=== PATIENT | male | born 1995 | race Hispanic/Latino ===

== ENCOUNTER 2024-09-27 16:44 | Observation (INO) | payer SELFPAY ==
--- NOTE | ~2024-09-27 | CT_ITS ---
CT cervical spine wo con Ordering provider: Trini Nixon PA-C History: . fall . Comparison: None. Technique: CT of the cervical spine was performed without contrast. Sagittal and coronal reformatted images were also obtained and reviewed. Automated exposure control and iterative reconstruction micaela hnique were employed. The dose-length product was 372.84 mGy-cm. FINDINGS: VERTEBRAE: No subluxation or acute fracture. The occipital condyles are intact. Sclerotic area in th e spinous process of C5. DISC SPACES: Normal. PARASPINOUS SOFT TISSUES: Normal. IMPRESSION: No acute osseous abnormality cervical spine. Sclerotic area in the spinous process of C5. Follow-up advised. Reviewed, dictated and finalized at location A.
--- NOTE | ~2024-09-27 | XR_ITS ---
XR hand LT min 3V Ordering provider: Louise Schwarz APRN History: . L hand pain following fall . Comparison: None. FINDINGS: BONES: No acute fracture or dislocation. JOINT SPACES: Well maintained. SOFT TISSUES: Unremarkable. IMPRESSION: No acute osseous abnormality left hand. Reviewed, dictated and finalized at location A.
--- NOTE | ~2024-09-27 | MR_ITS ---
EXAMINATION: MR lumbar spine wo con DATE: 09/29/2024 09:02 INDICATION: L1 burst fracture. Assess for ligamentous injury. TECHNIQUE: Magnetic resonance imaging (MRI) of the lumbar spine was performed without intravenous con trast. Sequences included sagittal T2-weighted FSE, sagittal T2-weighted FS FSE, sagittal T1-weighted FSE, and axial T2-weighted FSE. COMPARISON: None FINDINGS: Minimal kyphosis centered at an acute L1 burst fracture with 40% anterior vertebral body height loss and 2-3 mm retropulsion. There is mild associated marrow edema in the L1 vertebral body extending int o the bilateral pedicles which are without evident fracture. There is also minimal paravertebral carmen a. No evident tear of the anterior spinal, posterior spinal, intraspinal or supraspinal ligaments. Li gamentum flavum also appears intact. Remaining vertebral body heights are normal with otherwise daron l marrow signal throughout. Disc heights are normal. There is disc desiccation as well as annular fis sure without disc height loss at L5-S1. The conus medullaris terminates at L1. There is normal signal in the caudal spinal cord. The following disc levels are specifically discussed: T12-L1: The disc does not extend beyond the endplate margin. There is minimal bilateral facet joint o steoarthritis. There is no neural foraminal stenosis. There is no central canal stenosis at the level of the disc space. There is mild central canal stenosis more caudally due to the mild L1 retropulsio n. L1-L2: The disc does not extend beyond the endplate margin. There is mild bilateral facet joint osteo arthritis. There is no neural foraminal stenosis. There is no central canal stenosis. L2-L3: The disc does not extend beyond the endplate margin. There is minimal bilateral facet joint os teoarthritis. There is no neural foraminal stenosis. There is no central canal stenosis. L3-L4: The disc does not extend beyond the endplate margin. There is mild bilateral facet joint osteo arthritis. There is no neural foraminal stenosis. There is no central canal stenosis. L4-L5: Disc is mildly bulging. There is mild bilateral facet joint osteoarthritis. There is mild bila teral neural foraminal stenosis. There is negligible central canal stenosis. L5-S1: Disc is mildly bulging with annular fissure. There is mild bilateral facet joint osteoarthriti s. There is mild bilateral neural foraminal stenosis. There is no central canal stenosis. IMPRESSION: 1. Relatively acute appearing L1 burst fracture with mild retropulsion resulting in mild central darleen l stenosis but without evident associated ligamentous injury. 2. Minimal lumbar spondylosis with annular fissure at L5-S1 and multilevel mild facet osteoarthritis Reviewed, dictated and finalized at location A. IMPRESSION: 1. Relatively acute appearing L1 burst fracture with mild retropulsion resultin g in mild central canal stenosis but without evident associated ligamentous inj ury. 2. Minimal lumbar spondylosis with annular fissure at L5-S1 and multilevel mild facet osteoarthritis
--- NOTE | ~2024-09-27 | CT_ITS ---
CT thoracic lumbar wo con Ordering provider: Trini Nixon History: . low back pain, fall . Comparison: None. Technique: CT thoracic spine without contrast. Automated exposure control and iterative reconstructi on technique were employed. The dose-length product was 1256.18 mGy-cm. FINDINGS: VERTEBRAE: Normal height and alignment. No subluxation or visible acute fracture. DISC SPACES: Well maintained. No significant stenosis as visualized. PARASPINOUS SOFT TISSUES: Normal. IMPRESSION: No acute osseous abnormality of the thoracic spine. CT thoracic lumbar wo con Ordering provider: Trini Coreas Hussain History: 29 years Male with . low back pain, fall . Comparison: None. Technique: CT lumbar spine without contrast. Automated exposure control and iterative reconstruction technique were employed. The dose-length product was 1256.18 mGy-cm. FINDINGS: VERTEBRAE: Compression fracture of L1 with minimal retropulsion. DISC SPACES: Well maintained. T12-L1: No stenosis. L1-L2: Mild spinal canal stenosis secondary to retropulsed bone fragment in the upper L1 vertebra. L2-L3: No stenosis. L3-L4: No stenosis. Mild diffuse disc bulge. L4-L5: No stenosis. L5-S1: No stenosis. Central disc protrusion with no mild intervertebral foraminal narrowing. No defi nite root compression. PARASPINOUS SOFT TISSUES: Normal. IMPRESSION: Compression fracture of L1 with minimal retropulsed fragment and spinal canal stenosis. Disc protrusion at the level of L5-S1. MRI is is better for evaluation. Reviewed, dictated and finalized at location A. IMPRESSION: No acute osseous abnormality of the thoracic spine. === CT thoracic lumbar wo con Ordering provider: Trini LAndrea Nixon History: 29 years Male with . low back pain, fall . Comparison: None. Technique: CT lumbar spine without contrast. Automated exposure control and it erative reconstruction technique were employed. The dose-length product was 125 6.18 mGy-cm. FINDINGS: VERTEBRAE: Compression fracture of L1 with minimal retropulsion. DISC SPACES: Well maintained. T12-L1: No stenosis. L1-L2: Mild spinal canal stenosis secondary to retropulsed bone fragment in th e upper L1 vertebra. L2-L3: No stenosis. L3-L4: No stenosis. Mild diffuse disc bulge. L4-L5: No stenosis. L5-S1: No stenosis. Central disc protrusion with no mild intervertebral forami nal narrowing. No definite root compression. PARASPINOUS SOFT TISSUES: Normal. IMPRESSION: Compression fracture of L1 with minimal retropulsed fragment and spinal canal s tenosis. Disc protrusion at the level of L5-S1. MRI is is better for evaluation.
--- NOTE | ~2024-09-27 | CT_ITS ---
CT brain wo con Ordering provider: Trini Nixon PA-C History: 29 years Male with . fall . Comparison: None. Technique: CT of the head without contrast. Radiation reduction technique utilized.The dose-length pr oduct was 681 mGy-cm. FINDINGS: BRAIN PARENCHYMA AND CSF SPACES: No midline shift, mass effect or hemorrhage. The brain parenchyma a nd CSF spaces are otherwise normal. VISUALIZED PARANASAL SINUSES: Well aerated. MASTOIDS: Well aerated. Bilateral external auditory canal cerumen is seen. BONES: The bones appear intact. SOFT TISSUES: Visualized nasopharynx is normal. Superficial soft tissues are normal. IMPRESSION: No acute intracranial findings. Reviewed, dictated and finalized at location A.
[2024-09-27 16:47] VITALS: BP 140/90; PULSE 91; RESP 16; TEMP 36.4; O2SAT 98
--- NOTE | 2024-09-27 16:52 | ED.BACK ---
HPI - Back Pain/Injury General Chief Complaint: Back Pain/Injury <Trini Nixon PA-C - Last Filed: 09/28/24 09:29> Stated Complaint: Fell from ladder 6-8'-lower back pain <Trini Nixon PA-C - Last Filed: 09/28/24 09:29> Time Seen by Provider: 09/27/24 16:52 <Trini Nixon PA-C - Last Filed: 09/28/24 09:29> Focused HPI: This is a 29-year-old male that presents to the emergency department after a fall today with low back pain. Reports he fell about 6-8 feet from a ladder. He does not believe he hit his head. Landed on his back. GENERAL: Uncomfortable, well-nourished, and in no acute distress. HEAD: Normocephalic, atraumatic. CHEST: Clear to auscultation. ?No respiratory distress. HEART: Regular rate and rhythm.? NEURO: ?Alert and oriented x3. Patient screened in triage and initial orders placed.? ?Additional care and disposition to be based upon?diagnostic testing and treatment. <Trini Nixon PA-C - Last Filed: 09/28/24 09:29> Related Data Home Medications: Home Medications ?Medication ?Instructions ?Recorded ?Confirmed ?Last Taken ?Type No Home Medications 09/27/24 09/27/24 Unknown History <Trini Nixon PA-C - Last Filed: 09/28/24 09:29> Allergies/Adverse Reactions: Allergies Allergy/AdvReac Type Severity Reaction Status Date / Time No Known Allergies Allergy Verified 09/27/24 16:46 <Trini Nixon PA-C - Last Filed: 09/28/24 09:29> Review of Systems Review of Systems: All systems reviewed & are unremarkable except as noted in HPI and below <Louise Schwarz APRN - Last Filed: 09/27/24 19:41> PMFSH Social History Social History: Social History Smoking status: Never smoker Second hand tobacco smoke exposure: No Alcohol intake: current Drinks per week: 14 Substance use: never Substance use type: does not use Do You Feel Safe in your Home?: Yes Lack of Transportation: No Lack of Food: Never True Current Housing: I Have Housing Concerned About Future Housing: No Difficulty Paying Gas/Electric Bills: No Difficulty Paying for Meds: No Currently Unemployed: No Education: Grade School Difficulty w/ Childcare or Family Care: No Spiritual care concerns: No <Trini Nixon PA-C - Last Filed: 09/28/24 09:29> Exam Narrative: GENERAL: Ill appearing, well-nourished, non-toxic, in mild distress. HEAD: Normocephalic, atraumatic. NECK: Supple. No adenopathy, no masses. nontender with palpation. RESPIRATORY: Airway patent, respirations nonlabored. Clear to auscultation bilaterally, no rales, rhonchi, wheezing. CARDIOVASCULAR: Regular rate and rhythm without murmurs, rubs, or gallops. Peripheral pulses 2+ and equal bilaterally. ABDOMINAL: Soft, nontender, nondistended, no hepatosplenomegaly. Normoactive BS. MUSCULOSKELETAL: Moves all extremities. Strength/ROM intact without gross deformities. Lower back tenderness with palpation along spine and at rest. Negative snuffbox tenderness L hand, full ROM. SKIN: Warm, dry, normal color. No rashes. NEURO: A&O X3. Speech clear. Cranial nerves II-XII intact. No ataxic movements. <Louise Schwarz APRN - Last Filed: 09/27/24 19:41> Course Vital Signs Vital signs: Vital Signs Temperature 97.6 F 09/27/24 16:47 Pulse Rate 91 09/27/24 16:47 Respiratory Rate 16 09/27/24 16:47 Blood Pressure 140/90 09/27/24 16:47 Pulse Oximetry 98 09/27/24 16:47 Temperature 97.7 F 09/28/24 05:28 Pulse Rate 73 09/28/24 05:28 Respiratory Rate 16 09/28/24 05:28 Blood Pressure 107/48 L 09/28/24 05:28 Pulse Oximetry 100 09/28/24 05:28 Oxygen Delivery Room Air 09/27/24 22:42 <Trini Nixon PA-C - Last Filed: 09/28/24 09:29> Vital Signs Temperature 97.6 F 09/27/24 16:47 Pulse Rate 91 09/27/24 16:47 Respiratory Rate 16 09/27/24 16:47 Blood Pressure 140/90 09/27/24 16:47 Pulse Oximetry 98 09/27/24 16:47 Temperature 97.7 F 09/28/24 05:28 Pulse Rate 73 09/28/24 05:28 Respiratory Rate 16 09/28/24 05:28 Blood Pressure 107/48 L 09/28/24 05:28 Pulse Oximetry 100 09/28/24 05:28 Oxygen Delivery Room Air 09/27/24 22:42 <Louise Schwarz, AN/SYQ 13 NAV/C2 OPERATOR - Last Filed: 09/27/24 19:41> MDM - Back Pain/Injury MDM Narrative Medical decision making narrative: This is a 29-year-old male that presents to the emergency department after a fall today with low back pain. Reports he fell about 6-8 feet from a ladder. He does not believe he hit his head. Landed on his back. Labs Ordered: CBC, CMP, PTT, INR Imaging Ordered: CT head, CT cervical/spine, CT thoracic/lumbar, L hand x-ray Medications Ordered: 1 L normal saline IV bolus, Dilaudid 0.5 mg IV Results: Pt's CT brain indicates No acute intracranial findings. Pt's CT cervical/spine indicates No acute osseous abnormality cervical spine. Sclerotic area in the spinous process of C5. Follow-up advised. PT's thoracic/lumbar spine Compression fracture of L1 with minimal retropulsed fragment and spinal canal stenosis. Disc protrusion at the level of L5-S1. MRI is is better for evaluation. Diagnosis: L1 compression fracture Consults: 1829-spoke with Neurosurgery, Dr. Downing, who requests clarification of patient's CT scans. 1844-After further clarification, neurosurgery, Dr. Downing, recommends patient be admitted for pain control and bracing. 1914- Spoke with Dr. Jaramillo who was in agreement with plan for admission. Pt will be continued on IV pain medication and IV fluids. Patient Education/Shared MDM: Results of lab work and imaging shared with patient. He endorses improvement of symptoms following pain medication administration. He verbalizes understanding of plan for admission and is in agreement with plan. 1939- Pt continues to endorse back pain. Will give pt Toradol 15mg IV. <Louise Schwarz APRN - Last Filed: 09/27/24 19:41> Differential Diagnosis Differential diagnosis: Likely lumbar radiculopathy, strain of lumbar region and other (Compression fraction, lumbar fracture) <Louise Schwarz APRN - Last Filed: 09/27/24 19:41> Lab Data Attestation: I reviewed the patient's lab results. <Louise Schwarz APRN - Last Filed: 09/27/24 19:41> Result diagrams: 09/28/24 06:38 09/28/24 06:38 <Trini Nixon PA-C - Last Filed: 09/28/24 09:29> Labs: Lab Results 09/27/24 Range/Units 17:14 WBC 21.7 H (4.5-10.0) K/mm3 RBC 4.83 (4.6-6.20) M/mm3 Hgb 14.6 (14.0-18.0) g/dL Hct 43.1 (42.0-52.0) % MCV 89.2 (80-100) fl MCH 30.2 (26-34) pg MCHC 33.9 (32-36) g/dl RDW 12.7 (11.5-14.5) % Plt Count 316 (150-375) k/mm3 MPV 10.4 (7.4-10.4) fl Immature Gran % (Auto) Not Reportable Neut % (Auto) Not Reportable Lymph % (Auto) Not Reportable [place] % (Auto) Not Reportable Eos % (Auto) Not Reportable Baso % (Auto) Not Reportable Lymph # (Auto) Not Reportable [place] # (Auto) Not Reportable Eos # (Auto) Not Reportable Baso # (Auto) Not Reportable Abs Immat Gran (auto) Not Reportable Absolute Neuts (auto) Not Reportable Absolute Nucleated RBC Not Reportable Total Counted 100 Neutrophils % (Manual) 78 H (46-73) % Band Neutrophils % 2 (0-6) % Lymphocytes % (Manual) 12.0 L (18-44) % Monocytes % (Manual) 8 (3-9) % Nucleated RBC % Not Reportable Abs Neuts (Manual) 17.36 H (1.3-6.7) K/mm3 Abs Lymphs (Manual) 2.60 (1.1-4.5) K/mm3 Abs Monocytes (Manual) 1.73 H (0.1-0.90) K/mm3 Platelet Estimate Adequate (Adequate) Schistocytes None seen PT 13.8 (11.1-14.7) Seconds INR 1.0 APTT 22.4 (22.3-36.8) Seconds Sodium 139 (137-145) mmol/L Potassium 4.0 (3.4-5.0) mmol/L Chloride 105 (98-107) mmol/L Carbon Dioxide 23 (22-30) mmol/L Anion Gap 11 (4-12) mmol/L BUN 15 (9-20) mg/dL Creatinine 0.92 (0.7-1.3) mg/dL Estim Creat Clear Calc 96 ml/min Estimated GFR > 60 (59 - ) Glucose 145 H (65-110) mg/dL Calcium 9.6 (8.4-10.2) mg/dL Total Bilirubin 0.9 (0.2-1.3) mg/dL AST 51 (17-59) U/L ALT 36 (6-50) U/L Alkaline Phosphatase 83 (38-126) U/L Total Protein 9.0 H (6.3-8.2) g/dL Albumin 5.2 H (3.5-5.1) g/dL <Trini Nixon PA-C - Last Filed: 09/28/24 09:29> Lab Results 09/27/24 Range/Units 17:14 WBC 21.7 H (4.5-10.0) K/mm3 RBC 4.83 (4.6-6.20) M/mm3 Hgb 14.6 (14.0-18.0) g/dL Hct 43.1 (42.0-52.0) % MCV 89.2 (80-100) fl MCH 30.2 (26-34) pg MCHC 33.9 (32-36) g/dl RDW 12.7 (11.5-14.5) % Plt Count 316 (150-375) k/mm3 MPV 10.4 (7.4-10.4) fl Immature Gran % (Auto) Not Reportable Neut % (Auto) Not Reportable Lymph % (Auto) Not Reportable [place] % (Auto) Not Reportable Eos % (Auto) Not Reportable Baso % (Auto) Not Reportable Lymph # (Auto) Not Reportable [place] # (Auto) Not Reportable Eos # (Auto) Not Reportable Baso # (Auto) Not Reportable Abs Immat Gran (auto) Not Reportable Absolute Neuts (auto) Not Reportable Absolute Nucleated RBC Not Reportable Total Counted 100 Neutrophils % (Manual) 78 H (46-73) % Band Neutrophils % 2 (0-6) % Lymphocytes % (Manual) 12.0 L (18-44) % Monocytes % (Manual) 8 (3-9) % Nucleated RBC % Not Reportable Abs Neuts (Manual) 17.36 H (1.3-6.7) K/mm3 Abs Lymphs (Manual) 2.60 (1.1-4.5) K/mm3 Abs Monocytes (Manual) 1.73 H (0.1-0.90) K/mm3 Platelet Estimate Adequate (Adequate) Schistocytes None seen PT 13.8 (11.1-14.7) Seconds INR 1.0 APTT 22.4 (22.3-36.8) Seconds Sodium 139 (137-145) mmol/L Potassium 4.0 (3.4-5.0) mmol/L Chloride 105 (98-107) mmol/L Carbon Dioxide 23 (22-30) mmol/L Anion Gap 11 (4-12) mmol/L BUN 15 (9-20) mg/dL Creatinine 0.92 (0.7-1.3) mg/dL Estim Creat Clear Calc 96 ml/min Estimated GFR > 60 (59 - ) Glucose 145 H (65-110) mg/dL Calcium 9.6 (8.4-10.2) mg/dL Total Bilirubin 0.9 (0.2-1.3) mg/dL AST 51 (17-59) U/L ALT 36 (6-50) U/L Alkaline Phosphatase 83 (38-126) U/L Total Protein 9.0 H (6.3-8.2) g/dL Albumin 5.2 H (3.5-5.1) g/dL <Louise Schwarz, AN/SYQ 13 NAV/C2 OPERATOR - Last Filed: 09/27/24 19:41> Imaging Data Attestation: I personally reviewed and interpreted this imaging study as follows: <Louise Schwarz, AN/SYQ 13 NAV/C2 OPERATOR - Last Filed: 09/27/24 19:41> Radiologist's impression: Impressions Head CT 09/27/24 17:29 IMPRESSION: No acute intracranial findings. Cervical Spine CT 09/27/24 17:34 IMPRESSION: No acute osseous abnormality cervical spine. Sclerotic area in the spinous process of C5. Follow-up advised. Thoracic/Lumbar Spine CT 09/27/24 17:40 IMPRESSION: No acute osseous abnormality of the thoracic spine. CT thoracic lumbar wo con Ordering provider: Trini Nixon History: 29 years Male with . low back pain, fall . Comparison: None. Technique: CT lumbar spine without contrast. Automated exposure control and iterative reconstruction technique were employed. The dose-length product was 1256.18 mGy-cm. FINDINGS: VERTEBRAE: Compression fracture of L1 with minimal retropulsion. DISC SPACES: Well maintained. T12-L1: No stenosis. L1-L2: Mild spinal canal stenosis secondary to retropulsed bone fragment in the upper L1 vertebra. L2-L3: No stenosis. L3-L4: No stenosis. Mild diffuse disc bulge. L4-L5: No stenosis. L5-S1: No stenosis. Central disc protrusion with no mild intervertebral foraminal narrowing. No definite root compression. PARASPINOUS SOFT TISSUES: Normal. IMPRESSION: Compression fracture of L1 with minimal retropulsed fragment and spinal canal stenosis. Disc protrusion at the level of L5-S1. MRI is is better for evaluation. ADDENDUM: 09/27/24 1840 The loss of height of L1 is about 50%. No obvious involvement of the pedicles is seen. <Louise Schwarz, AN/SYQ 13 NAV/C2 OPERATOR - Last Filed: 09/27/24 19:41> Critical Care Time Critical Care Time Critical Care Time: No <Trini Nixon PA-C - Last Filed: 09/28/24 09:29> Discharge Plan Discharge Clinical Impression: Back pain due to injury Compression fracture of L1 vertebra Qualifiers: Encounter type: initial encounter Qualified Code(s): S32.010A - Wedge compression fracture of first lumbar vertebra, initial encounter for closed fracture Fall from ladder Qualifiers: Encounter type: initial encounter Qualified Code(s): W11.XXXA - Fall on and from ladder, initial encounter <Trini Nixon PA-C - Last Filed: 09/28/24 09:29> Patient Disposition: Still a Patient <Trini Nixon PA-C - Last Filed: 09/28/24 09:29> Condition: Serious <Trini Nixon PA-C - Last Filed: 09/28/24 09:29>
[2024-09-27 17:22] LABS: Hematocrit 43.1 % (42.0-52.0); Hemoglobin 14.6 g/dL (14.0-18.0); Mean Corpuscular HGB Conc 33.9 g/dl (32-36); Mean Corpuscular Hemoglobin 30.2 pg (26-34); Mean Corpuscular Volume 89.2 fl (80-100); Mean Platelet Volume 10.4 fl (7.4-10.4); Platelet Count Result 316 k/mm3 (150-375); Red Blood Count 4.83 M/mm3 (4.6-6.20); Red Cell Distribution Width 12.7 % (11.5-14.5); White Blood Count 21.7 K/mm3 (4.5-10.0)
[2024-09-27 17:36] LABS: Prothrombin Time 13.8 Seconds (11.1-14.7)
[2024-09-27 17:37] LABS: Partial Thromboplastin Time 22.4 Seconds (22.3-36.8)
[2024-09-27 17:42] LABS: Alanine Aminotransferase 36 U/L (6-50); Albumin Level 5.2 g/dL (3.5-5.1); Alkaline Phosphatase 83 U/L (38-126); Anion Gap 11 mmol/L (4-12); Aspartate Amino Transferase 51 U/L (17-59); Bilirubin,Total 0.9 mg/dL (0.2-1.3); Blood Urea Nitrogen 15 mg/dL (9-20); Calcium 9.6 mg/dL (8.4-10.2); Carbon Dioxide 23 mmol/L (22-30); Chloride 105 mmol/L (98-107); Estimated CRCL calculation 96 ml/min; Estimated Glomerular Filt Rate > 60; Glucose 145 mg/dL (65-110); Sodium 139 mmol/L (137-145)
[2024-09-27 17:49] LABS: Band Neutrophils Percent 2 % (0-6); Monocytes Absolute Manual 1.73 K/mm3 (0.1-0.90); Monocytes Percent Manual 8 % (3-9); Neutrophils Absolute Manual 17.36 K/mm3 (1.3-6.7); Neutrophils Percent Manual 78 % (46-73); Platelet Estimate Adequate (Adequate); Total Cells Counted 100
[2024-09-27 17:50] LABS: Schistocytes None Seen
[2024-09-27] MEDS: HYDROmorphone HCL INJ (*CRX) 2 MG/ML VIAL 0.5 MG IV PUSH (18:43)
[2024-09-27] MEDS: SODIUM CHLORIDE 0.9% IV 1,000 ML 999 ML IV CONT (18:43)
--- NOTE | 2024-09-27 19:02 | ED_ITS ---
HPI - Back Pain/Injury General Chief Complaint: Back Pain/Injury Stated Complaint: Fell from ladder 6-8'-lower back pain Time Seen by Provider: 09/27/24 16:52 Related Data Allergies Allergy/AdvReac Type Severity Reaction Status Date / Time No Known Allergies Allergy Verified 09/27/24 16:46 Course Vital Signs Vital signs: Vital Signs Temperature 36.4 C 09/27/24 16:47 Pulse Rate 91 09/27/24 16:47 Respiratory Rate 16 09/27/24 16:47 Blood Pressure 140/90 09/27/24 16:47 Pulse Oximetry 98 09/27/24 16:47 Temperature 36.4 C 09/27/24 16:47 Pulse Rate 91 09/27/24 16:47 Respiratory Rate 16 09/27/24 16:47 Blood Pressure 140/90 09/27/24 16:47 Pulse Oximetry 98 09/27/24 16:47 MDM - Back Pain/Injury Lab Data 09/27/24 17:14 09/27/24 17:14 Labs: Lab Results 09/27/24 Range/Units 17:14 WBC 21.7 H (4.5-10.0) K/mm3 RBC 4.83 (4.6-6.20) M/mm3 Hgb 14.6 (14.0-18.0) g/dL Hct 43.1 (42.0-52.0) % MCV 89.2 (80-100) fl MCH 30.2 (26-34) pg MCHC 33.9 (32-36) g/dl RDW 12.7 (11.5-14.5) % Plt Count 316 (150-375) k/mm3 MPV 10.4 (7.4-10.4) fl Immature Gran % (Auto) Not Reportable Neut % (Auto) Not Reportable Lymph % (Auto) Not Reportable [place] % (Auto) Not Reportable Eos % (Auto) Not Reportable Baso % (Auto) Not Reportable Lymph # (Auto) Not Reportable [place] # (Auto) Not Reportable Eos # (Auto) Not Reportable Baso # (Auto) Not Reportable Abs Immat Gran (auto) Not Reportable Absolute Neuts (auto) Not Reportable Absolute Nucleated RBC Not Reportable Total Counted 100 Neutrophils % (Manual) 78 H (46-73) % Band Neutrophils % 2 (0-6) % Lymphocytes % (Manual) 12.0 L (18-44) % Monocytes % (Manual) 8 (3-9) % Nucleated RBC % Not Reportable Abs Neuts (Manual) 17.36 H (1.3-6.7) K/mm3 Abs Lymphs (Manual) 2.60 (1.1-4.5) K/mm3 Abs Monocytes (Manual) 1.73 H (0.1-0.90) K/mm3 Platelet Estimate Adequate (Adequate) Schistocytes None seen PT 13.8 (11.1-14.7) Seconds INR 1.0 APTT 22.4 (22.3-36.8) Seconds Sodium 139 (137-145) mmol/L Potassium 4.0 (3.4-5.0) mmol/L Chloride 105 (98-107) mmol/L Carbon Dioxide 23 (22-30) mmol/L Anion Gap 11 (4-12) mmol/L BUN 15 (9-20) mg/dL Creatinine 0.92 (0.7-1.3) mg/dL Estim Creat Clear Calc 96 ml/min Estimated GFR > 60 (59 - ) Glucose 145 H (65-110) mg/dL Calcium 9.6 (8.4-10.2) mg/dL Total Bilirubin 0.9 (0.2-1.3) mg/dL AST 51 (17-59) U/L ALT 36 (6-50) U/L Alkaline Phosphatase 83 (38-126) U/L Total Protein 9.0 H (6.3-8.2) g/dL Albumin 5.2 H (3.5-5.1) g/dL Discharge Plan Discharge Patient Language: English Follow-up/Referrals: PHYSICIAN,PATENT CHEMIST [Primary Care Provider] -
[2024-09-27] MEDS: KETOROLAC 15 MG/ML VIAL (*BKC) IV PUSH (20:52)
--- NOTE | 2024-09-27 22:01 | PM.IMHP ---
H&P: HPI History of Present Illness Date/Time: 09/27/24 22:01 Chief Complaint: Fall at home Narrative: 29-year-old [place]-speaking Citizen [place] male fell from a ladder today from about 6-8 feet while doing housework. He believes he lost his balance, no seizure activity, no fainting. Landed on his back. Presented with left hand pain lower back pain on 09/27/2024 to [facility]. No fracture of left hand on x-ray. Head CT no acute abnormalities. C-spine CT with sclerotic area in the spinous process, no acute osseous abnormalities. T and L-spine demonstrates compression fracture of L1 with minimal retropulsed fragment in spinal canal stenosis. Disc protrusion at the level of L5-S1. Nurse surgery contacted from ER. Advised bracing and pain control. MRI pending as well. Patient feels better after receiving hydromorphone. He denies any other symptoms. Denies urine or bowel loss. No specific weakness or loss of sensation. Review of Systems Review of Systems: All systems reviewed & are unremarkable except as noted in HPI and below (HPI) Meds Home Medications and Allergies Allergies Allergy/AdvReac Type Severity Reaction Status Date / Time No Known Allergies Allergy Verified 09/27/24 16:46 Vital Signs Vital Signs - 24 hr 09/27/24 16:47 Temperature 97.6 F Pulse Rate 91 Respiratory Rate 16 Blood Pressure 140/90 Pulse Oximetry 98 Exam Const: General: comfortable and no acute distress HENMT: Mouth: Yes moist mucous membranes Eyes: Pupils: Equal, round and reactive pupils present Neck: Neck: supple Resp: Effort & Inspection: normal respiratory effort Auscultation: clear to auscultation bilaterally Cardio: Rate: regular rate Rhythm: regular rhythm GI: GI Palp: Yes Soft to palpation and No Tenderness to palpation present (GI) : General: Yes bladder normal to palpation Neuro: General: deep tendon reflexes 2+ bilaterally Speech: normal speech Motor exam (neuro): 5/5 motor strength present throughout and Normal motor muscle tone present throughout Sensory Exam: normal sensation Extrem: General: no edema H&P: Results Labs Labs: Short CBC 09/27/24 Range/Units 17:14 WBC 21.7 H (4.5-10.0) K/mm3 Hgb 14.6 (14.0-18.0) g/dL Hct 43.1 (42.0-52.0) % Plt Count 316 (150-375) k/mm3 BMP 09/27/24 17:14 Sodium 139 Potassium 4.0 Chloride 105 Carbon Dioxide 23 BUN 15 Creatinine 0.92 Glucose 145 H Calcium 9.6 Liver Function 09/27/24 Range/Units 17:14 Total Bilirubin 0.9 (0.2-1.3) mg/dL AST 51 (17-59) U/L ALT 36 (6-50) U/L Alkaline Phosphatase 83 (38-126) U/L Albumin 5.2 H (3.5-5.1) g/dL Assessment and Plan Assessment and plan (1) Compression fracture of L1 vertebra: Code(s): S32.010A - Wedge compression fracture of first lumbar vertebra, initial encounter for closed fracture Status: Acute Plan Continue Dilaudid, ketorolac, acetaminophen p.r.n.. Neurosurgery to see in official consultation. MRI pending. SCDs. Trend leukocytosis and check procalcitonin. No symptomatology or evidence to suggest infectious etiology. Full code. Hospitalist MIPS Advance Care Plan I have confirmed that the patient's Advanced Care Plan is present, code status is documented, or surrogate decision maker is listed in patient medical record.: Yes Medication Reconciliation I have utilized all available resources to obtain, update and review the patients current medications (includes all prescriptions, OTC, herbals, cannabis, and nutritional supplements).: Yes
[2024-09-27] MEDS: SODIUM CHLORIDE 0.9% IV 1,000 ML 125 ML IV CONT (22:14)
[2024-09-27 22:16] VITALS: BP 97/60; PULSE 79; RESP 14; O2SAT 99
[2024-09-27 22:42] VITALS: BMI 19.6
--- NOTE | 2024-09-27 22:47 | ADMGEN ---
This patient, Paul Saenz, was admitted to [facility] Surg Room 329-01. Patient/family oriented to hospital policies and general routines including ID bracelet, bed and alarms, visiting hours, pain management, procedures, bathroom and other care routines, personal items, smoking policy, room service/diet, and visiting hours. Information on how to activate the Rapid Response Team has been discussed. Patient/Family are encouraged to report perceived risks to care and to ask questions if they do not understand what they are told or what they should do.
[2024-09-27] MEDS: KETOROLAC 30 MG/ML VIAL (*BKC) IV PUSH (23:03)
[2024-09-27 23:25] VITALS: BP 107/54; PULSE 72; RESP 16; TEMP 36.4; O2SAT 100
[2024-09-28 05:28] VITALS: BP 107/48; PULSE 73; RESP 16; TEMP 36.5; O2SAT 100
[2024-09-28] MEDS: SODIUM CHLORIDE 0.9% IV 1,000 ML 125 ML IV CONT ×2 (06:16→19:59)
[2024-09-28] MEDS: KETOROLAC 30 MG/ML VIAL (*BKC) IV PUSH ×2 (06:17→19:51)
[2024-09-28 06:49] LABS: Basophils Percent Auto 0.1 % (0.2-1.2); Eosinophils Percent Auto 0.5 % (0-4.4); Hematocrit 38.5 % (42.0-52.0); Hemoglobin 12.8 g/dL (14.0-18.0); Immature Granulocyte Absolute 0.03 K/mm3 (0.00-0.031); Immature Granulocyte Percent A 0.4 % (0-0.5); Lymphocytes Absolute Auto 1.16 K/mm3 (0.9-3.2); Lymphocytes Percent Auto 14.5 % (18.3-44.2); Mean Corpuscular HGB Conc 33.2 g/dl (32-36); Mean Corpuscular Hemoglobin 30.1 pg (26-34); Mean Corpuscular Volume 90.6 fl (80-100); Mean Platelet Volume 10.1 fl (7.4-10.4); Monocytes Absolute Auto 0.8 K/mm3 (0.1-0.6); Monocytes Percent Auto 9.4 % (2.6-8.5); Neutrophils Percent Auto 75.1 % (45.5-73.1); Platelet Count Result 213 k/mm3 (150-375); Red Blood Count 4.25 M/mm3 (4.6-6.20); Red Cell Distribution Width 13.2 % (11.5-14.5)
[2024-09-28 07:02] LABS: Alanine Aminotransferase 25 U/L (6-50); Albumin Level 3.7 g/dL (3.5-5.1); Alkaline Phosphatase 55 U/L (38-126); Anion Gap 5 mmol/L (4-12); Aspartate Amino Transferase 38 U/L (17-59); Bilirubin,Total 1.8 mg/dL (0.2-1.3); Blood Urea Nitrogen 13 mg/dL (9-20); Calcium 8.3 mg/dL (8.4-10.2); Carbon Dioxide 24 mmol/L (22-30); Chloride 109 mmol/L (98-107); Estimated CRCL calculation 118 ml/min; Estimated Glomerular Filt Rate > 60; Glucose 104 mg/dL (65-110); Potassium 3.6 mmol/L (3.4-5.0); Sodium 138 mmol/L (137-145)
[2024-09-28] MEDS: HYDROmorphone HCL INJ (*CRX) 2 MG/ML VIAL 0.5 MG IV PUSH (08:52)
--- NOTE | 2024-09-28 10:28 | P.DS_ITS ---
DS: Admitting Diagnosis Discharge Date 09/29/2024 1015 Admitting Diagnosis L1 compression fracture DS: Discharge Diagnosis Discharge Diagnosis (1) Compression fracture of L1 vertebra: Qualifiers: Encounter type: initial encounter Qualified Code(s): S32.010A - Wedge compression fracture of first lumbar vertebra, initial encounter for closed fracture Code(s): S32.010A - Wedge compression fracture of first lumbar vertebra, initial encounter for closed fracture Status: Acute Plan Continue Dilaudid, ketorolac, acetaminophen p.r.n.. Neurosurgery to see in official consultation. MRI pending. SCDs. Trend leukocytosis and check procalcitonin. No symptomatology or evidence to suggest infectious etiology. TLSO Full code. DS: Summary Hospital Course Reason for hospitalization: 29-year-old Italian-speaking [place] male fell from a ladder today from about 6-8 feet while doing housework. He believes he lost his balance, no seizure activity, no fainting. Landed on his back. Presented with left hand pain lower back pain on 09/27/2024 to [facility]. No fracture of left hand on x-ray. Head CT no acute abnormalities. C-spine CT with sclerotic area in the spinous process, no acute osseous abnormalities. T and L-spine demonstrates compression fracture of L1 with minimal retropulsed fragment in spinal canal stenosis. Disc protrusion at the level of L5-S1. Nurse surgery contacted from ER. Advised bracing and pain control. MRI pending as well. Patient feels better after receiving hydromorphone. He denies any other symptoms. Denies urine or bowel loss. No specific weakness or loss of sensation. Hospital Course: Neurosurgery was consulted and did see the patient. MRI of the spine did show an acute burst fracture of L1 with spinal stenosis. Patient was treated pain medicine and was fitted for TLSO brace. It is noted that he will not be able lift more than 10 lb or bend twist. Currently patient is doing well he is able to walk independently. He denies any chest pain, shortness a breath, nausea, vomiting, diarrhea constipation. Per orthopedic surgery patient will need to follow up in 4 weeks. Patient is stable for discharge for labs and vital signs. Patient has been given discharge instructions verbalizes understanding. Status at Discharge Functional status at discharge: independent ambulation Time Spent with Patient Time attestation: Total time spent providing and/or coordinating discharge services: 46 minutes Time spent: Greater than 30 minutes Exam Narrative: General: well-nourished, well-appearing 29-year-old male, sitting up in bed, comfortable, NARD Neuro: awake, alert and oriented x4, speech clear, no focal neuro deficits noted HEENMT: normocephalic, atraumatic, EOMI, sclerae anicteric, moist oral mucosa Respiratory: Clear to auscultation bilaterally without crackles, rhonchi or wheezes, nonlabored breathing Cardio: regular rate, regular rhythm with S1-S2 Abdomen: nondistended, normoactive bowel sounds, soft, nontender to palpation Extremities: no edema, erythema, or tenderness to palpation, DP pulses 2+ bilaterally Skin: no rashes or lesions, warm and dry Psych: appropriate mood and affect, judgment and insight intact DS: Data Data Completed and Pending Labs on day of discharge: Labs from last 24 hours 09/28/24 09/27/24 06:38 17:14 WBC 8.0 21.7 H RBC 4.25 L 4.83 Hgb 12.8 L 14.6 Hct 38.5 L 43.1 MCV 90.6 89.2 MCH 30.1 30.2 MCHC 33.2 33.9 RDW 13.2 12.7 Plt Count 213 316 MPV 10.1 10.4 Immature Gran % (Auto) 0.4 Not Reportable Neut % (Auto) 75.1 H Not Reportable Lymph % (Auto) 14.5 L Not Reportable Branch % (Auto) 9.4 H Not Reportable Eos % (Auto) 0.5 Not Reportable Baso % (Auto) 0.1 L Not Reportable Lymph # (Auto) 1.16 Not Reportable Branch # (Auto) 0.8 H Not Reportable Eos # (Auto) 0.0 Not Reportable Baso # (Auto) 0.0 Not Reportable Abs Immat Gran (auto) 0.03 Not Reportable Absolute Neuts (auto) 6.0 Not Reportable Absolute Nucleated RBC 0.000 Not Reportable Total Counted 100 Neutrophils % (Manual) 78 H Band Neutrophils % 2 Lymphocytes % (Manual) 12.0 L Monocytes % (Manual) 8 Nucleated RBC % 0.0 Not Reportable Abs Neuts (Manual) 17.36 H Abs Lymphs (Manual) 2.60 Abs Monocytes (Manual) 1.73 H Platelet Estimate Adequate Schistocytes None seen PT 13.8 INR 1.0 APTT 22.4 Sodium 138 139 Potassium 3.6 4.0 Chloride 109 H 105 Carbon Dioxide 24 23 Anion Gap 5 11 BUN 13 15 Creatinine 0.67 L 0.92 Estim Creat Clear Calc 118 96 Estimated GFR > 60 > 60 Glucose 104 145 H Calcium 8.3 L 9.6 Magnesium 2.0 Total Bilirubin 1.8 H 0.9 AST 38 51 ALT 25 36 Alkaline Phosphatase 55 83 Total Protein 6.0 L 9.0 H Albumin 3.7 5.2 H Procalcitonin Pending Discharge Plan Discharge Attending physician on discharge: Anish Driver Consulting providers: Callie Downing Discharging Clinician: Bk Apple Patient Disposition: Home Activity: may shower, unlimited and as tolerated Diet: regular Discharge Instructions: * Take medications as prescribed * Remain active, full weight-bearing status * Continue weight restrictions of no more than 10 lb and no bending or twisting * Continues the TLSO brace when active * Continue with fall precautions, remove rugs within the home, use hand rails when climbing stairs and use assistive devices when needed to ambulate * Follow-up with primary care provider within 1 weeks * Follow-up with Neurosurgery as recommended in 4 weeks * Thank you for choosing [facility] for your healthcare needs Patient Instructions: Antibiotic Form Patient Language: Italian Stand Alone Forms: General Discharge Information Follow-up/Referrals: Callie Downing MD [Physician] - 4 Weeks PHYSICIAN,TOBACCO DRIER OPERATOR [Primary Care Provider] - 1 Week Discharge Medications: New hydrocodone-acetaminophen 5-325 mg tablet 1 tablet PO Q6H PRN (Reason: pain) Qty: 12 0RF Date of admission: 09/27/24 19:23 Primary Care Provider: PHYSICIAN,TOBACCO DRIER OPERATOR Admitting Provider: Francia Jaramillo Attending physician on admission: Francia Jaramillo Condition: Serious Quality VTE Prophylaxis VTE prophylaxis: mechanical ordered and pharmacologic ordered Hospitalist MIPS Heart Failure (Exclusion) Patient has history of Heart Transplant or Left Ventricular Assistive Device?: No IF YES, STOP HERE Heart Failure (Qualifier) Patient has current or prior documentation of LVEF less than or equal to 40%, or mod/servere depressed LVSF?: No IF NO, STOP HERE
[2024-09-28 10:43] LABS: Procalcitonin 0.3 ng/mL
[2024-09-28 14:00] VITALS: BP 101/54; PULSE 76; RESP 16; TEMP 37.4; O2SAT 100
--- NOTE | 2024-09-28 14:44 | P.PNIM_ITS ---
Progress Note: A&P Assessment and Plan (1) Compression fracture of L1 vertebra: Qualifiers: Encounter type: initial encounter Qualified Code(s): S32.010A - Wedge compression fracture of first lumbar vertebra, initial encounter for closed fracture Code(s): S32.010A - Wedge compression fracture of first lumbar vertebra, initial encounter for closed fracture Status: Acute Assessment and Plan: * Continue Dilaudid, ketorolac, acetaminophen p.r.n.. * Neurosurgery to see in official consultation. * MRI pending. * TLSO brace ordered and delivered * patient able to walk to the bathroom independently * continue trend pain (2) Leukocytosis: Code(s): D72.829 - Elevated white blood cell count, unspecified Status: Acute Assessment and Plan: * white blood cell count on admission was 21.7 * current white blood cell 8.0 * continue trend the labs * no signs or symptoms of infection. Time Spent With Patient Time: 48 miunutes Time with patient: Greater than 35 minutes Subjective Date/time seen: 09/28/24 14:44 Interval history: 09/27/24 29-year-old [place] Islander-speaking [facility] male fell from a ladder today from about 6-8 feet while doing housework. He believes he lost his balance, no seizure activity, no fainting. Landed on his back. Presented with left hand pain lower back pain on 09/27/2024 to [place] [facility]. No fracture of left hand on x-ray. Head CT no acute abnormalities. C-spine CT with sclerotic area in the spinous process, no acute osseous abnormalities. T and L-spine demonstrates compression fracture of L1 with minimal retropulsed fragment in spinal canal stenosis. Disc protrusion at the level of L5-S1. Nurse surgery contacted from ER. Advised bracing and pain control. MRI pending as well. Patient feels better after receiving hydromorphone. He denies any other symptoms. Denies urine or bowel loss. No specific weakness or loss of sensation. 09/28/24 patient was lying in bed. Patient denies any current pain he does is more complaining of pain in his ribs. He denies any chest pain, shortness a breath, nausea, and diarrhea constipation. Brace has been ordered. Awaiting MRI at this time. Also waiting for Neurosurgery to see in consult. Review of Systems Review of Systems: All systems reviewed & are unremarkable except as noted in HPI and below Exam Narrative: General: well-nourished, tired-appearing 29-year-old female, sitting up in bed, comfortable, NARD Neuro: awake, alert and oriented x4, speech clear, no focal neuro deficits noted HEENMT: normocephalic, atraumatic, EOMI, sclerae anicteric, moist oral mucosa Respiratory: Clear to auscultation bilaterally without crackles, rhonchi or wheezes, nonlabored breathing Cardio: regular rate, regular rhythm with S1-S2 Abdomen: nondistended, normoactive bowel sounds, soft, nontender to palpation Extremities: no edema, erythema, or tenderness to palpation, DP pulses 2+ bilaterally Skin: no rashes or lesions, warm and dry Psych: appropriate mood and affect, judgment and insight intact Objective Data Vital Signs Vital Signs: Vital Signs - 24 hr 09/27/24 16:47 09/27/24 22:16 09/27/24 22:42 Temperature 97.6 F Pulse Rate 91 79 Respiratory Rate 16 14 Blood Pressure 140/90 97/60 L Pulse Oximetry 98 99 Oxygen Delivery Room Air 09/27/24 23:25 09/28/24 05:28 Temperature 97.5 F L 97.7 F Pulse Rate 72 73 Respiratory Rate 16 16 Blood Pressure 107/54 L 107/48 L Pulse Oximetry 100 100 Oxygen Delivery Intake/Output Intake/Output: Intake & Output 09/25/24 09/26/24 09/27/24 09/28/24 23:59 23:59 23:59 23:59 Intake Total 1000 1000 Balance 1000 1000 Meds/Results Medications: Active Medications Generic Name Dose Route Start Last Admin Trade Name Freq PRN Reason Stop Dose Admin Acetaminophen 650 mg 09/27/24 21:58 Acetaminophen 325 Mg Tablet PO Q4H PRN Mild Pain (1-3) or Fever Hydromorphone HCl 0.5 mg 09/27/24 19:22 09/28/24 08:52 Hydromorphone Hcl Inj (*Crx) 2 Mg/Ml Vial IV PUSH 0.5 mg Q4H PRN Administration Pain Rated 7-10 Sodium Chloride 1,000 mls @ 125 mls/hr 09/27/24 19:25 09/28/24 06:16 Normal Saline Iv IV CONT 125 mls/hr .Q8H VIVIANA Administration Ketorolac Tromethamine 30 mg 09/27/24 21:58 09/28/24 06:17 Ketorolac 30 Mg/Ml Vial (*Bkc) IV PUSH 30 mg Q6H PRN Administration Pain Rated 4-6 Ondansetron HCl 4 mg 09/27/24 19:22 Ondansetron Inj 4 Mg/2 Ml Vial IV PUSH Q4H PRN Nausea Radiology Results: ITS Impressions Head CT 09/27/24 17:29 IMPRESSION: No acute intracranial findings. Cervical Spine CT 09/27/24 17:34 IMPRESSION: No acute osseous abnormality cervical spine. Sclerotic area in the spinous process of C5. Follow-up advised. Thoracic/Lumbar Spine CT 09/27/24 17:40 IMPRESSION: No acute osseous abnormality of the thoracic spine. CT thoracic lumbar wo con Ordering provider: Trini Nixon History: 29 years Male with . low back pain, fall . Comparison: None. Technique: CT lumbar spine without contrast. Automated exposure control and iterative reconstruction technique were employed. The dose-length product was 1256.18 mGy-cm. FINDINGS: VERTEBRAE: Compression fracture of L1 with minimal retropulsion. DISC SPACES: Well maintained. T12-L1: No stenosis. L1-L2: Mild spinal canal stenosis secondary to retropulsed bone fragment in the upper L1 vertebra. L2-L3: No stenosis. L3-L4: No stenosis. Mild diffuse disc bulge. L4-L5: No stenosis. L5-S1: No stenosis. Central disc protrusion with no mild intervertebral foraminal narrowing. No definite root compression. PARASPINOUS SOFT TISSUES: Normal. IMPRESSION: Compression fracture of L1 with minimal retropulsed fragment and spinal canal stenosis. Disc protrusion at the level of L5-S1. MRI is is better for evaluation. ADDENDUM: 09/27/24 1840 The loss of height of L1 is about 50%. No obvious involvement of the pedicles is seen. Hand X-Ray 09/27/24 19:49 IMPRESSION: No acute osseous abnormality left hand. Labs Labs: Laboratory Results - last 24 hr 09/27/24 09/28/24 17:14 06:38 WBC 21.7 H 8.0 RBC 4.83 4.25 L Hgb 14.6 12.8 L Hct 43.1 38.5 L MCV 89.2 90.6 MCH 30.2 30.1 MCHC 33.9 33.2 RDW 12.7 13.2 Plt Count 316 213 MPV 10.4 10.1 Immature Gran % (Auto) Not Reportable 0.4 Neut % (Auto) Not Reportable 75.1 H Lymph % (Auto) Not Reportable 14.5 L [place] % (Auto) Not Reportable 9.4 H Eos % (Auto) Not Reportable 0.5 Baso % (Auto) Not Reportable 0.1 L Lymph # (Auto) Not Reportable 1.16 [place] # (Auto) Not Reportable 0.8 H Eos # (Auto) Not Reportable 0.0 Baso # (Auto) Not Reportable 0.0 Abs Immat Gran (auto) Not Reportable 0.03 Absolute Neuts (auto) Not Reportable 6.0 Absolute Nucleated RBC Not Reportable 0.000 Total Counted 100 Neutrophils % (Manual) 78 H Band Neutrophils % 2 Lymphocytes % (Manual) 12.0 L Monocytes % (Manual) 8 Nucleated RBC % Not Reportable 0.0 Abs Neuts (Manual) 17.36 H Abs Lymphs (Manual) 2.60 Abs Monocytes (Manual) 1.73 H Platelet Estimate Adequate Schistocytes None seen PT 13.8 INR 1.0 APTT 22.4 Sodium 139 138 Potassium 4.0 3.6 Chloride 105 109 H Carbon Dioxide 23 24 Anion Gap 11 5 BUN 15 13 Creatinine 0.92 0.67 L Estim Creat Clear Calc 96 118 Estimated GFR > 60 > 60 Glucose 145 H 104 Calcium 9.6 8.3 L Magnesium 2.0 Total Bilirubin 0.9 1.8 H AST 51 38 ALT 36 25 Alkaline Phosphatase 83 55 Total Protein 9.0 H 6.0 L Albumin 5.2 H 3.7 Procalcitonin 0.3 Quality VTE Prophylaxis VTE prophylaxis: mechanical ordered and pharmacologic ordered
[2024-09-28] MEDS: ACETAMINOPHEN 325 MG TABLET 650 MG PO (15:14)
[2024-09-28 20:00] VITALS: PULSE 72; RESP 20; O2SAT 100
--- NOTE | 2024-09-28 20:17 | P.CONNS_ITS ---
Assessment and Plan Assessment and plan (1) Burst fracture of lumbar vertebra: Code(s): S32.001A - Stable burst fracture of unspecified lumbar vertebra, initial encounter for closed fracture Status: Acute Plan Mr. Reed Saenz is a 29-year-old Welsh-speaking male who fell off of a ladder yesterday and has localized back pain without lower extremity symptoms. He is neurologically intact. Imaging reveals a burst fracture at L1 with 40% loss of height and a West angle of 30 degrees. He has already been fitted for a brace. I would like to get an MRI lumbar spine without contrast to evaluate for ligamentous injury. If the ligaments are intact, he can be treated with a brace. He should wear this when out of bed. I advised him not to lift more than 10 lbs or do any bending or twisting while the fracture is healing. He should also avoid NSAIDs. If we are able to treat this non-operatively, I will plan to follow up with him in about 4 weeks. Consult date: 09/28/24 Time Seen: 18:00 HPI: Paul Saenz is a 29 year old male presented to the hospital yesterday after falling from a 6-8 foot ladder, injuring his back and left wrist. He states the pain is localized to the back and does not radiate into the legs. He has no paresthesias or weakness in the legs. He has been voiding without difficulty. Imaging in the ER revealed an L1 burst fracture for which Neurosurgery was consulted. He has already been fitted for a brace which he states is helping him get to the restroom. He also complains of pain in the left wrist without parethesias in the hand or weakness in the hand. Of note, he is Welsh-speaking only. The hospital's retail customer service specialist service went down this morning, so the interview was conducted with Dr. Z. Review of Systems 2 Review of Systems: All systems reviewed & are unremarkable except as noted in HPI and below PMFSH Social History Social History Smoking status: Never smoker Second hand tobacco smoke exposure: No Alcohol intake: current Drinks per week: 14 Substance use: never Substance use type: does not use Do You Feel Safe in your Home?: Yes Lack of Transportation: No Lack of Food: Never True Current Housing: I Have Housing Concerned About Future Housing: No Difficulty Paying Gas/Electric Bills: No Difficulty Paying for Meds: No Currently Unemployed: No Education: Grade School Difficulty w/ Childcare or Family Care: No Spiritual care concerns: No Meds Home Medications and Allergies Home Medications ?Medication ?Instructions ?Recorded ?Confirmed ?Type No Home Medications 09/27/24 09/27/24 History Allergies Allergy/AdvReac Type Severity Reaction Status Date / Time No Known Allergies Allergy Verified 09/27/24 16:46 Vital Signs Vital Signs - 24 hr 09/27/24 22:16 09/27/24 22:42 09/27/24 23:25 Temperature 97.5 F L Pulse Rate 79 72 Respiratory Rate 14 16 Blood Pressure 97/60 L 107/54 L Pulse Oximetry 99 100 Oxygen Delivery Room Air 09/28/24 05:28 09/28/24 08:00 09/28/24 14:00 Temperature 97.7 F 99.3 F Pulse Rate 73 76 Respiratory Rate 16 16 Blood Pressure 107/48 L 101/54 L Pulse Oximetry 100 100 Oxygen Delivery Room Air Exam 2 Narrative: Alert, conversive Able to stand at bedside independently Full strength in lower extremities Sensation intact to light touch Results Labs 09/28/24 06:38 09/28/24 06:38 Labs: Short CBC 09/28/24 Range/Units 06:38 WBC 8.0 (4.5-10.0) K/mm3 Hgb 12.8 L (14.0-18.0) g/dL Hct 38.5 L (42.0-52.0) % Plt Count 213 (150-375) k/mm3 BMP 09/28/24 06:38 Sodium 138 Potassium 3.6 Chloride 109 H Carbon Dioxide 24 BUN 13 Creatinine 0.67 L Glucose 104 Calcium 8.3 L Liver Function 09/28/24 Range/Units 06:38 Total Bilirubin 1.8 H (0.2-1.3) mg/dL AST 38 (17-59) U/L ALT 25 (6-50) U/L Alkaline Phosphatase 55 (38-126) U/L Albumin 3.7 (3.5-5.1) g/dL Imaging My impression: I personally reviewed the CT lumbar spine that shows an L1 burst fracture with about 40% height loss, minimal retropulsion, and a West angle of 30 degrees.
[2024-09-28 21:30] VITALS: BP 106/69; PULSE 72; RESP 20; TEMP 36.4; O2SAT 100
[2024-09-29] MEDS: SODIUM CHLORIDE 0.9% IV 1,000 ML 125 ML IV CONT (03:19)
[2024-09-29 06:00] VITALS: BP 105/63; PULSE 66; RESP 20; TEMP 36.5; O2SAT 98
[2024-09-29 06:27] LABS: Basophils Percent Auto 0.3 % (0.2-1.2); Eosinophils Absolute Auto 0.2 K/mm3 (0-0.3); Eosinophils Percent Auto 2.7 % (0-4.4); Hematocrit 38.2 % (42.0-52.0); Hemoglobin 12.3 g/dL (14.0-18.0); Immature Granulocyte Absolute 0.02 K/mm3 (0.00-0.031); Immature Granulocyte Percent A 0.3 % (0-0.5); Lymphocytes Absolute Auto 1.02 K/mm3 (0.9-3.2); Lymphocytes Percent Auto 14.3 % (18.3-44.2); Mean Corpuscular HGB Conc 32.2 g/dl (32-36); Mean Corpuscular Hemoglobin 29.9 pg (26-34); Mean Corpuscular Volume 92.7 fl (80-100); Mean Platelet Volume 10.7 fl (7.4-10.4); Monocytes Absolute Auto 0.6 K/mm3 (0.1-0.6); Monocytes Percent Auto 7.9 % (2.6-8.5); Neutrophils Absolute Auto 5.3 K/mm3 (1.3-6.7); Neutrophils Percent Auto 74.5 % (45.5-73.1); Platelet Count Result 200 k/mm3 (150-375); Red Blood Count 4.12 M/mm3 (4.6-6.20); White Blood Count 7.1 K/mm3 (4.5-10.0)
[2024-09-29 06:39] LABS: Alanine Aminotransferase 21 U/L (6-50); Albumin Level 3.6 g/dL (3.5-5.1); Alkaline Phosphatase 49 U/L (38-126); Anion Gap 6 mmol/L (4-12); Aspartate Amino Transferase 30 U/L (17-59); Bilirubin,Total 1.4 mg/dL (0.2-1.3); Blood Urea Nitrogen 8 mg/dL (9-20); Calcium 8.3 mg/dL (8.4-10.2); Carbon Dioxide 22 mmol/L (22-30); Chloride 109 mmol/L (98-107); Estimated CRCL calculation 125 ml/min; Estimated Glomerular Filt Rate > 60; Glucose 98 mg/dL (65-110); Potassium 3.6 mmol/L (3.4-5.0); Sodium 137 mmol/L (137-145)
[2024-09-29] MEDS: KETOROLAC 30 MG/ML VIAL (*BKC) IV PUSH (09:57)
--- NOTE | 2024-09-29 11:18 | P.PNNEUSUR_ITS ---
Progress Note: A&P Assessment and Plan (1) Burst fracture of lumbar vertebra: Code(s): S32.001A - Stable burst fracture of unspecified lumbar vertebra, initial encounter for closed fracture Status: Acute Plan I reviewed his MRI lumbar spine which again demonstrates the L1 burst fracture with minimal retropulsion. I do not appreciate any ligamentous injury or significant central stenosis. He may discharge from my standpoint. He should wear the brace when out of bed. He should avoid lifiting > 10 lbs, bending/twisting until I see him back in clinic. We will contact him for follow up in about 4 weeks. Subjective Date/time seen: 09/29/24 11:18 Objective Data Vital Signs Vital Signs: Vital Signs - 24 hr 09/28/24 14:00 09/28/24 20:00 09/28/24 21:30 Temperature 99.3 F 97.5 F L Pulse Rate 76 72 72 Respiratory Rate 16 20 20 Blood Pressure 101/54 L 106/69 Pulse Oximetry 100 100 100 Oxygen Delivery Room Air 09/29/24 06:00 Temperature 97.7 F Pulse Rate 66 Respiratory Rate 20 Blood Pressure 105/63 Pulse Oximetry 98 Oxygen Delivery Intake/Output Intake/Output: Intake & Output 09/26/24 09/27/24 09/28/24 09/29/24 23:59 23:59 23:59 23:59 Intake Total 1000 3040 1356.7 Output Total 850 Balance 1000 3040 506.7 Meds/Results Medications: Active Medications Generic Name Dose Route Start Last Admin Trade Name Freq PRN Reason Stop Dose Admin Acetaminophen 650 mg 09/27/24 21:58 09/28/24 15:14 Acetaminophen 325 Mg Tablet PO 650 mg Q4H PRN Administration Mild Pain (1-3) or Fever Hydromorphone HCl 0.5 mg 09/27/24 19:22 09/28/24 08:52 Hydromorphone Hcl Inj (*Crx) 2 Mg/Ml Vial IV PUSH 0.5 mg Q4H PRN Administration Pain Rated 7-10 Sodium Chloride 1,000 mls @ 125 mls/hr 09/27/24 19:25 09/29/24 03:19 Normal Saline Iv IV CONT 125 mls/hr .Q8H VIVIANA Administration Ketorolac Tromethamine 30 mg 09/27/24 21:58 09/29/24 09:57 Ketorolac 30 Mg/Ml Vial (*Bkc) IV PUSH 30 mg Q6H PRN Administration Pain Rated 4-6 Ondansetron HCl 4 mg 09/27/24 19:22 Ondansetron Inj 4 Mg/2 Ml Vial IV PUSH Q4H PRN Nausea Radiology Results: ITS Impressions Head CT 09/27/24 17:29 IMPRESSION: No acute intracranial findings. Cervical Spine CT 09/27/24 17:34 IMPRESSION: No acute osseous abnormality cervical spine. Sclerotic area in the spinous process of C5. Follow-up advised. Thoracic/Lumbar Spine CT 09/27/24 17:40 IMPRESSION: No acute osseous abnormality of the thoracic spine. CT thoracic lumbar wo con Ordering provider: Trini Nixon History: 29 years Male with . low back pain, fall . Comparison: None. Technique: CT lumbar spine without contrast. Automated exposure control and iterative reconstruction technique were employed. The dose-length product was 1256.18 mGy-cm. FINDINGS: VERTEBRAE: Compression fracture of L1 with minimal retropulsion. DISC SPACES: Well maintained. T12-L1: No stenosis. L1-L2: Mild spinal canal stenosis secondary to retropulsed bone fragment in the upper L1 vertebra. L2-L3: No stenosis. L3-L4: No stenosis. Mild diffuse disc bulge. L4-L5: No stenosis. L5-S1: No stenosis. Central disc protrusion with no mild intervertebral foraminal narrowing. No definite root compression. PARASPINOUS SOFT TISSUES: Normal. IMPRESSION: Compression fracture of L1 with minimal retropulsed fragment and spinal canal stenosis. Disc protrusion at the level of L5-S1. MRI is is better for evaluation. ADDENDUM: 09/27/24 1840 The loss of height of L1 is about 50%. No obvious involvement of the pedicles is seen. Hand X-Ray 09/27/24 19:49 IMPRESSION: No acute osseous abnormality left hand. Lumbar Spine MRI 09/29/24 10:13 IMPRESSION: 1. Relatively acute appearing L1 burst fracture with mild retropulsion resulting in mild central canal stenosis but without evident associated ligamentous injury. 2. Minimal lumbar spondylosis with annular fissure at L5-S1 and multilevel mild facet osteoarthritis Labs Labs: Laboratory Results - last 24 hr 09/29/24 05:46 WBC 7.1 RBC 4.12 L Hgb 12.3 L Hct 38.2 L MCV 92.7 MCH 29.9 MCHC 32.2 RDW 13.0 Plt Count 200 MPV 10.7 H Immature Gran % (Auto) 0.3 Neut % (Auto) 74.5 H Lymph % (Auto) 14.3 L [place] % (Auto) 7.9 Eos % (Auto) 2.7 Baso % (Auto) 0.3 Lymph # (Auto) 1.02 [place] # (Auto) 0.6 Eos # (Auto) 0.2 Baso # (Auto) 0.0 Abs Immat Gran (auto) 0.02 Absolute Neuts (auto) 5.3 Absolute Nucleated RBC 0.000 Nucleated RBC % 0.0 Sodium 137 Potassium 3.6 Chloride 109 H Carbon Dioxide 22 Anion Gap 6 BUN 8 L D Creatinine 0.63 L Estim Creat Clear Calc 125 Estimated GFR > 60 Glucose 98 Calcium 8.3 L Magnesium 2.0 Total Bilirubin 1.4 H AST 30 ALT 21 Alkaline Phosphatase 49 Total Protein 6.0 L Albumin 3.6
== END 2024-09-29 11:35 | disposition home or self-care (01) ==
LOC: ANHED 19:22 → ANH3MEDSUR 09-28 09:29
PROVIDERS: Nurse Practitioner; Physician Assistant; Admitting Provider General Practice; Emergency Provider Registered Nurse; Visit Provider Internal Medicine
DX: S32.011A Stable burst fracture of first lumbar vertebra, initial encounter for closed fracture (principal); W11.XXXA Fall on and from ladder, initial encounter; D72.829 Elevated white blood cell count, unspecified
CPT/HCPCS: 36415; 70450; 72125; 72128; 72131; 72148; 73130; 80053; 83735; 84145; 85025; 85610; 85730; 96361; 96374; 96375; 96376; 99285; A9270; G0378; J1171; J1885; J7030